=== PATIENT | female | born 1955 | race Caucasian/White ===

== ENCOUNTER → 2023-05-15 13:58 | Outpatient (CLI) | payer MEDICARE, SELFPAY ==
--- NOTE | 2023-05-15 14:00 | DI.RAD.S_ITS ---
PROCEDURE: XR ANKLE RT MIN 3V INDICATIONS: Right ankle injury TECHNIQUE: 3 views of the ankle were acquired. COMPARISON: None. FINDINGS: Bones: Comminuted mildly displaced distal fibular fracture. No dislocation at the tibiotalar joint space. No widening of the syndesmosis. Soft tissues: No tibiotalar joint effusion. Achilles tendon appears normal. IMPRESSION: Comminuted, mildly displaced distal fibular fracture. Dictated by: Jocelyn Correa M.D. on 05/15/2023 at 17:50 Approved by: Jocelyn Correa M.D. on 05/15/2023 at 17:50
== END ==
PROVIDERS: Referring Provider Nurse Practitioner Family; Visit Provider Nurse Practitioner Family
DX: S82.831A Other fracture of upper and lower end of right fibula, initial encounter for closed fracture (principal); X58.XXXA Exposure to other specified factors, initial encounter
CPT/HCPCS: 73610

== ENCOUNTER → 2025-08-18 10:02 | Outpatient (CLI) | payer MEDICARE, SELFPAY ==
[2025-08-18 10:49] LABS: Influenza A - CEPHEID Flu A NEGATIVE (NEGATIVE); Influenza B - CEPHEID Flu B NEGATIVE (NEGATIVE)
[2025-08-18 10:50] LABS: COVID-19 CEPHEID 4-PLEX PCR Negative (Negative)
== END ==
PROVIDERS: Visit Provider Physician Assistant
DX: J02.9 Acute pharyngitis, unspecified (principal); R05.3 Chronic cough
CPT/HCPCS: 87637

== ENCOUNTER → 2025-08-18 10:04 | Outpatient (CLI) | payer MEDICARE, SELFPAY ==
--- NOTE | 2025-08-18 10:09 | DI.RAD.S_ITS ---
PROCEDURE: XR CHEST 2V INDICATIONS: chronic cough since Sep TECHNIQUE: 2 views of the chest were acquired. COMPARISON: None. FINDINGS: Surgical changes and devices: None. Lungs and pleura: No pleural effusion or pneumothorax. Multifocal pulmonary nodules throughout the lungs. Mediastinum: Mediastinal contours are normal. Heart size is normal. Bones and chest wall: No suspicious bony abnormalities. Soft tissues appear unremarkable. IMPRESSION: Multifocal pulmonary nodules throughout the lungs. Recommend further evaluation with CT chest with contrast. Dictated by: Bong Garcia M.D. on 08/18/2025 at 11:24 Approved by: Bong Garcia M.D. on 08/18/2025 at 11:25
[2025-08-18 10:59] LABS: Add Manual Diff / Slide Review NO; Hematocrit 39.8 % (36-46); Hemoglobin 13.3 g/dL (12.0-16.0); Lymphocytes Absolute Auto 1000 /uL (1100-4500); Mean Corpuscular HGB Conc 33.3 % (30-36); Mean Corpuscular Hemoglobin 29.4 PG (26-34); Mean Corpuscular Volume 88.2 fL (80-100); Platelet Count 219 X10^3/uL (150-400)
[2025-08-18 11:19] LABS: Alanine Aminotransferase 27 IU/L (<35); Albumin 4.4 g/dL (3.5-5.0); Albumin Globulin Ratio 1.6 (1.0-2.8); Alkaline Phosphatase 123 U/L (38-126); Blood Urea Nitrogen 15 mg/dL (7-17); Calcium 9.5 mg/dL (8.4-10.2); Carbon Dioxide 24 mmol/L (22-32); Chloride 105 mmol/L (98-107); Estimated Glomerular Filt Rate > 60 mL/min (>60); Globulin 2.8 g/dL (1.7-4.1); Glucose 92 mg/dL (70-99); HEMOLYSIS < 15 (0-50); Potassium 4.2 mmol/L (3.4-5.1); Sodium 138 mmol/L (137-145); Total Protein 7.2 g/dL (6.3-8.2)
== END ==
PROVIDERS: Referring Provider Physician Assistant; Visit Provider Physician Assistant
DX: J02.9 Acute pharyngitis, unspecified (principal); R05.3 Chronic cough; R91.8 Other nonspecific abnormal finding of lung field
CPT/HCPCS: 36415; 71046; 80053; 85025; 87637

== ENCOUNTER → 2025-08-19 06:57 | Outpatient (CLI) | payer MEDICARE, SELFPAY ==
--- NOTE | 2025-08-19 06:58 | DI.CT.S_ITS ---
PROCEDURE: CT CHEST W CON INDICATIONS: chronic cough, abnormal xray w/ multiple nodules TECHNIQUE: After the administration of intravenous contrast, 5 mm thick sections acquired from the pulmonary apices to the posterior costophrenic angles. 1 mm axial lung, 5 mm thick coronal and sagittal reformats and 7 mm axial MIP were acquired. For radiation dose reduction, the following was used: automated exposure control, adjustment of mA and/or kV according to patient size. COMPARISON: [facility], , XR CHEST 2V, 08/18/2025, 10:06. FINDINGS: Image quality: Diagnostic. Lower Neck: No enlarged lymph nodes. Thyroid: No left-sided thyroid nodules which require sonographic follow up, per consensus guidelines. However, on right, there is a relatively large thyroid mass which measures up to 3.4 cm AP and 3.7 cm craniocaudad. Axillae: No enlarged lymph nodes. Chest Wall: Unremarkable. Bones: Unremarkable. Lungs and Pleura: No pneumothorax or pleural effusions. There are innumerable bilateral indistinctly marginated pulmonary nodules as was seen on chest plain film imaging 1 day ago. These range in size from several mm to 3 cm, none of which show internal necrosis. Heart: Heart size is normal. No pericardial effusion. Thoracic Vessels: The aorta and pulmonary arteries demonstrate normal size. Mediastinum and January: No enlarged lymph nodes. Esophagus: No wall thickening. No hiatal hernia. Upper Abdomen: Visualized upper abdomen solid organs and bowel loops appear normal. IMPRESSION: Numerous bilateral pulmonary nodules involving all lung segments, ranging in size from several mm to several cm. The appearance is most consistent with extensive metastatic disease. The likelihood of septic emboli in this clinical circumstance is considered very low. CT scanning of the abdomen and pelvis with contrast likely is warranted to assist in attempting to detect a source of these abnormalities, and to assist in planning biopsy. Dictated by: Del Smiley M.D. on 08/19/2025 at 9:08 Approved by: Del Smiley M.D. on 08/19/2025 at 9:14
== END ==
LOC: CT 06:58
PROVIDERS: Referring Provider Physician Assistant; Visit Provider Physician Assistant
DX: R91.8 Other nonspecific abnormal finding of lung field (principal)
CPT/HCPCS: 71260; Q9967

== ENCOUNTER → 2025-08-20 08:53 | Outpatient (CLI) | payer MEDICARE, SELFPAY ==
--- NOTE | 2025-08-20 08:54 | DI.CT.S_ITS ---
PROCEDURE: CT ABDOMEN PELVIS W CON INDICATIONS: extensive metastatic disease on lung CT TECHNIQUE: After the administration of intravenous contrast, axial sections acquired from the lung bases to the pubic symphysis. Coronal and sagittal reformats were performed. For radiation dose reduction, the following was used: automated exposure control, adjustment of mA and/or kV according to patient size. COMPARISON: [facility], CT, CT CHEST W CON, 08/19/2025, 7:55. [facility], CR, XR CHEST 2V, 08/18/2025, 10:06. FINDINGS: Image quality: Diagnostic. Lower Chest: Innumerable pulmonary nodules/nodular opacities. Small masses or consolidations at the lung bases. ABDOMEN: Liver: A few small hypodensities which have the appearance of benign cysts. Suspected focal fatty infiltration at the falciform ligament. Gallbladder: No radiopaque gallstones or wall thickening. Biliary ducts: No biliary dilation. Pancreas: No ductal dilation. Ill-defined hypodense lesion at the distal tail measuring 2 cm, (2). Spleen: Size is within normal limits. Adrenal Glands: No adrenal nodules. Kidneys and Ureters: Suspected bilateral peripelvic cysts. Kidneys enhance symmetrically. No solid renal mass. Stomach and Bowel: The stomach is not distended. No small bowel obstruction. Oral contrast is present. Increased stool in the colon. Normal appendix. No diverticulitis. Peritoneum: No ascites. No pneumoperitoneum. Ventral Wall: Tiny fat containing umbilical hernia. Abdominal Nodes: No retroperitoneal or mesenteric adenopathy by size criteria. Vessels: Aorta and inferior vena cava are normal in size. Portal vein is patent. PELVIS: Pelvic Organs: Anteverted uterus. Small low-density right ovarian cyst measuring 1.7 cm, (2/101). Bladder: No bladder wall thickening, accounting for underdistention. No stone. Pelvic Nodes: No enlarged lymph nodes. Miscellaneous: No inguinal hernias are seen. Bones: No aggressive osseous abnormality. IMPRESSION: 1. Ill-defined hypodense lesion at the distal tail the pancreas measuring 2 cm. Diagnostic considerations include metastasis, adenocarcinoma, cystic lesion, or pseudocyst. -MRI pancreas or multiphase pancreas CT may be helpful for further characterization. 2. No convincing metastatic disease in the liver. No adenopathy. No ascites. 3. Prominent stool in the colon which raises the possibility of constipation. 4. Innumerable pulmonary nodular opacities or pulmonary nodules. Indeterminate. Comment: Message was left for the ordering provider at time of dictation. Dictated by: Helder Frazier M.D. on 08/20/2025 at 10:46 Approved by: Helder Frazier M.D. on 08/20/2025 at 11:06
== END ==
LOC: CT 08:53
PROVIDERS: Referring Provider Physician Assistant; Visit Provider Physician Assistant
DX: C79.9 Secondary malignant neoplasm of unspecified site (principal); K86.89 Other specified diseases of pancreas; R91.8 Other nonspecific abnormal finding of lung field; R05.3 Chronic cough
CPT/HCPCS: 36415; 74177; 80053; 84443; 85025; Q9967

== ENCOUNTER → 2025-08-20 14:43 | Outpatient (CLI) | payer MEDICARE, SELFPAY ==
[2025-08-20 15:06] LABS: Add Manual Diff / Slide Review NO; Hematocrit 37.8 % (36-46); Hemoglobin 12.9 g/dL (12.0-16.0); Lymphocytes Absolute Auto 800 /uL (1100-4500); Mean Corpuscular HGB Conc 34.0 % (30-36); Mean Corpuscular Hemoglobin 29.7 PG (26-34); Mean Corpuscular Volume 87.3 fL (80-100); Platelet Count 210 X10^3/uL (150-400)
[2025-08-20 15:37] LABS: Alanine Aminotransferase 22 IU/L (<35); Albumin 4.2 g/dL (3.5-5.0); Albumin Globulin Ratio 1.6 (1.0-2.8); Alkaline Phosphatase 102 U/L (38-126); Blood Urea Nitrogen 15 mg/dL (7-17); Calcium 9.3 mg/dL (8.4-10.2); Carbon Dioxide 26 mmol/L (22-32); Chloride 105 mmol/L (98-107); Estimated Glomerular Filt Rate > 60 mL/min (>60); Globulin 2.6 g/dL (1.7-4.1); Glucose 98 mg/dL (70-99); HEMOLYSIS < 15 (0-50); Potassium 4.4 mmol/L (3.4-5.1); Sodium 138 mmol/L (137-145); Total Protein 6.8 g/dL (6.3-8.2)
[2025-08-20 16:04] LABS: TSH w/ Reflex to FT4 2.01 uIU/mL (0.47-4.68)
== END ==
PROVIDERS: PCP Physician Assistant; Referring Provider Physician Assistant; Visit Provider Physician Assistant
DX: K86.89 Other specified diseases of pancreas (principal); R91.8 Other nonspecific abnormal finding of lung field; R05.3 Chronic cough
CPT/HCPCS: 36415; 80053; 84443; 85025

== ENCOUNTER → 2025-08-26 07:40 | Outpatient (CLI) | payer MEDICARE, SELFPAY ==
--- NOTE | 2025-08-26 07:41 | DI.MRI.S_ITS ---
PROCEDURE: MR AB PANCREATIC/MRCP PROTOCOL
== END ==
LOC: MRI 07:41
PROVIDERS: PCP Family Medicine; Referring Provider Physician Assistant; Visit Provider Physician Assistant
DX: C80.1 Malignant (primary) neoplasm, unspecified (principal); C78.00 Secondary malignant neoplasm of unspecified lung; K86.89 Other specified diseases of pancreas
CPT/HCPCS: 74183; A9579

== ENCOUNTER → 2025-09-21 16:41 | Outpatient (CLI) | payer MEDICARE, SELFPAY ==
--- NOTE | 2025-09-21 16:43 | DI.MRI.S_ITS ---
PROCEDURE: MR HEAD/BRAIN WO/W CON INDICATIONS: Stage IV cancer; please evaluate for metastasis TECHNIQUE: Noncontrast axial T1 spin echo, axial T2 fast spin echo, sagittal and axial FLAIR, coronal T2 fast spin echo, axial gradient echo, axial diffusion and ADC through the brain. After the administration of contrast, axial and coronal and sagittal T1 spin echo with fat saturation through the brain. COMPARISON: None. FINDINGS: Image quality: Excellent. CSF spaces: Basal cisterns are patent. No extra-axial fluid collections. Ventricles are normal in size and shape. Brain: There are enhancing, extra-axial dural-based masses seen adjacent to the superior anterior aspect of the right frontal lobe, as on series 13, images 139 and 147, measuring up to 7 mm and up to 11 mm. No brain parenchymal masses or abnormal enhancement can be seen. No soft tissue masses are seen. No midline shift. No intracranial bleeds. There is cerebral volume loss for age. There is periventricular white matter chronic small vessel ischemic change. The brainstem appears normal. Diffusion-weighted images demonstrate no acute infarct. No chronic ischemic insults. Normal intravascular flow voids are present. Skull and face: Calvarial marrow is normal in signal. Orbits appear normal. Sinuses: Sinuses and mastoids appear clear. IMPRESSION: No brain parenchymal masses or abnormal enhancement can be seen. Incidental note is made of presumed meningioma is anterior and superior to the right frontal lobe. - As a conservative measure, please consider a follow-up contrast enhanced brain MRI in 1 year to monitor for stability. Dictated by: Steven Kasper M.D. on 09/21/2025 at 16:31 Approved by: Steven Kasper M.D. on 09/21/2025 at 16:34
== END ==
LOC: MRI 16:42
PROVIDERS: PCP Family Medicine; Referring Provider Internal Medicine; Visit Provider Internal Medicine
DX: C34.82 Malignant neoplasm of overlapping sites of left bronchus and lung (principal); G93.9 Disorder of brain, unspecified
CPT/HCPCS: 70553; A9579